=== PATIENT | male | born 1975 | race Caucasian/White ===

== ENCOUNTER 2019-09-16 19:51 | Emergency (ER) | payer OTHER ==
[~2019-09-16] VITALS: Ht 193 cm; Wt 106.6 kg
[2019-09-16] MEDS ORDERED: Cleocin HCl300 MG PO (23:46)
== END 2019-09-17 00:12 | disposition home or self-care (01) ==
LOC: ER 19:51
DX: K13.0 Diseases of lips (principal)
CPT/HCPCS: 96372; 99283-25; J1885

== ENCOUNTER 2022-08-10 19:54 | Emergency (ER) | payer OTHER ==
[~2022-08-10] VITALS: Ht 193 cm; Wt 104.3 kg
[~2022-08-10 19:54] MED LIST: Cleocin HCl300 MG PO
== END 2022-08-11 00:41 | disposition home or self-care (01) ==
LOC: ER 19:54
DX: Z03.823 Encounter for observation for suspected inserted (injected) foreign body ruled out (principal)
CPT/HCPCS: 73060; 73090; 99282-25

== ENCOUNTER 2024-09-28 21:17 | Emergency (ER) | payer OTHER ==
[~2024-09-28] VITALS: Ht 193 cm; Wt 59.0 kg
[2024-09-28 22:26] VITALS: BP 152/86
[2024-09-28] MEDS ORDERED: Diphth,Pertuss(Acell),Tet Vac 0.5 ML VIAL IM ONE (22:30)
== END 2024-09-28 22:39 | disposition home or self-care (01) ==
LOC: ER 21:17
DX: S61.213A Laceration without foreign body of left middle finger without damage to nail, initial encounter (principal); W45.0XXA Nail entering through skin, initial encounter; F17.200 Nicotine dependence, unspecified, uncomplicated; Z23 Encounter for immunization
CPT/HCPCS: 90471; 90715; 99282-25